=== PATIENT | male | born 1960 | race Caucasian/White ===

== ENCOUNTER 2018-06-25 15:45 | Outpatient (RCR) | payer OTHER | END 2018-08-08 15:07 | disposition home or self-care (01) | PROVIDERS: ATTEND Orthopaedic Surgery | DX: S62.202D Unspecified fracture of first metacarpal bone, left hand, subsequent encounter for fracture with routine healing (principal); S62.301D Unspecified fracture of second metacarpal bone, left hand, subsequent encounter for fracture with routine healing; S62.303D Unspecified fracture of third metacarpal bone, left hand, subsequent encounter for fracture with routine healing; V26 Motorcycle rider injured in collision with other nonmotor vehicle ==